=== PATIENT | female | born 1960 | race Caucasian/White ===

== ENCOUNTER → 2018-11-11 12:10 | Outpatient (CLI) | payer SELFPAY ==
[2017-10-04 13:15] VITALS: BMI 32.1
--- NOTE | 2018-11-11 12:13 | BI_ITS ---
MAMMOGRAPHY - UNILATERAL SCREENING: LEFT BREAST REASON FOR EXAM: Female, 58 years old. Routine annual screening examination (unilateral). PERTINENT HISTORY: Personal history of breast cancer. Prior right mastectomy. TECHNIQUE: Digital unilateral breast elsa (3D mammographic acquisition) in the CC and MLO projections. 2-D mediolateral oblique (MLO) and craniocaudad (CC) views of both breasts were obtained. CAD: Full Field Digital Mammography with Computer Added Detection was performed. COMPARISON: Comparison is made with prior outside examination dated August 17, 2016. FINDINGS: Breast Composition: The breasts are heterogeneously dense, which may obscure small masses. There are no dominant masses or suspicious calcifications. Benign-appearing left axillary lymph node. No other significant abnormalities are identified. There has been no significant change since the prior study. BI/SCREEN MAMM (CAD) W/ESLA UNI L IMPRESSION: Stable unilateral screening mammogram. Yearly follow-up mammogram recommended. (A) ASSESSMENT CATEGORY: BIRADS Category 2: Benign. A letter regarding these results will be sent to the patient by the facility within 30 days. Approximately 10% of breast cancers are not detected by mammography. A normal mammogram should not delay biopsy of a clinically suspicious abnormality. [id number] Electronically Signed: Patel Phillips, at 9:07 EDT , Service support ,
== END ==
PROVIDERS: Referring Provider Surgery; Visit Provider Surgery
DX: Z12.31 Encounter for screening mammogram for malignant neoplasm of breast (principal)
CPT/HCPCS: 77061; 77067; G0279

== ENCOUNTER → 2019-11-13 12:48 | Outpatient (CLI) | payer SELFPAY, OTHER ==
[2018-11-22 13:35] VITALS: BMI 32.1
--- NOTE | 2019-11-13 12:50 | BI_ITS ---
MAMMOGRAPHY - UNILATERAL SCREENING: LEFT BREAST REASON FOR EXAM: Female, 59 years old. Routine annual screening examination (unilateral). PERTINENT HISTORY: Personal history of breast cancer. Prior right mastectomy. TECHNIQUE: Digital unilateral breast elsa (3D mammographic acquisition) in the CC and MLO projections. 2-D mediolateral oblique (MLO) and craniocaudad (CC) views of both breasts were obtained. CAD: Full Field Digital Mammography with Computer Added Detection was performed. COMPARISON: Comparison is made with prior study dated 11/11/2018 and 10/03/2010. FINDINGS: Breast Composition: The breasts are heterogeneously dense, which may obscure small masses. There are no dominant masses or suspicious calcifications. No other significant abnormalities are identified. There has been no significant change since the prior study. BI/SCREEN MAMM (CAD) W/ELSA UNI L IMPRESSION: Stable unilateral screening mammogram. Yearly follow-up mammogram recommended. (A) ASSESSMENT CATEGORY: BIRADS Category 1: Negative. A letter regarding these results will be sent to the patient by the facility within 30 days. Approximately 10% of breast cancers are not detected by mammography. A normal mammogram should not delay biopsy of a clinically suspicious abnormality. [id number] Electronically Signed: Patel Phillips, at 14:01 EDT , Service support ,
== END ==
PROVIDERS: Referring Provider Surgery; Visit Provider Surgery
DX: Z12.31 Encounter for screening mammogram for malignant neoplasm of breast (principal)
CPT/HCPCS: 77063; 77067

== ENCOUNTER → 2020-11-08 07:53 | Outpatient (CLI) | payer SELFPAY, OTHER ==
--- NOTE | 2020-11-08 08:10 | BI_ITS ---
MAMMOGRAPHY - UNILATERAL SCREENING: LEFT BREAST REASON FOR EXAM: Female, 60 years old. Routine annual screening examination (unilateral). PERTINENT HISTORY: Personal history of breast cancer. Prior right mastectomy and chemotherapy. TECHNIQUE: Digital unilateral breast elsa (3D mammographic acquisition) in the CC and MLO projections. 2-D mediolateral oblique (MLO) and craniocaudad (CC) views of both breasts were obtained. CAD: Full Field Digital Mammography with Computer Added Detection was performed. COMPARISON: Comparison is made with prior examination is 11/13/2019 and 11/11/2018. FINDINGS: Breast Composition: The breasts are heterogeneously dense, which may obscure small masses. There are no dominant masses or suspicious calcifications. No other significant abnormalities are identified. There has been no significant change since the prior study. BI/SCREEN MAMM (CAD) W/ELSA UNI L IMPRESSION: Stable unilateral screening mammogram. Yearly follow-up mammogram recommended. (A) ASSESSMENT CATEGORY: BIRADS Category 1: Negative. A letter regarding these results will be sent to the patient by the facility within 30 days. Approximately 10% of breast cancers are not detected by mammography. A normal mammogram should not delay biopsy of a clinically suspicious abnormality. [id number] Electronically Signed: Patel Phillips MD at 9:04 EDT , Service support ,
== END ==
PROVIDERS: Referring Provider Surgery; Visit Provider Surgery
DX: Z12.31 Encounter for screening mammogram for malignant neoplasm of breast (principal); Z85.3 Personal history of malignant neoplasm of breast
CPT/HCPCS: 77063; 77067

== ENCOUNTER → 2021-11-10 | Outpatient (CLI) | payer SELFPAY, OTHER ==
--- NOTE | 2021-11-10 09:37 | BI_ITS ---
MAMMOGRAPHY - UNILATERAL SCREENING: LEFT BREAST REASON FOR EXAM: Female, 61 years old. Routine annual screening examination (unilateral). PERTINENT HISTORY: Personal history of breast cancer. Prior right mastectomy and chemotherapy. TECHNIQUE: Digital unilateral breast elsa (3D mammographic acquisition) in the CC and MLO projections. 2-D mediolateral oblique (MLO) and craniocaudad (CC) views of both breasts were obtained. CAD: Full Field Digital Mammography with Computer Added Detection was performed. COMPARISON: Comparison is made with prior study dated 11/08/2020 and 11/13/2019. FINDINGS: Breast Composition: The breasts are heterogeneously dense, which may obscure small masses. There are no dominant masses or suspicious calcifications. No other significant abnormalities are identified. There has been no significant change since the prior study. BI/SCREEN MAMM (CAD) W/ELSA UNI L IMPRESSION: Stable unilateral screening mammogram. Yearly follow-up mammogram recommended. (A) ASSESSMENT CATEGORY: BIRADS Category 1: Negative. A letter regarding these results will be sent to the patient by the facility within 30 days. Approximately 10% of breast cancers are not detected by mammography. A normal mammogram should not delay biopsy of a clinically suspicious abnormality. [id number] Electronically Signed: Patel Phillips MD at 10:16 EDT ,
== END | disposition home or self-care (01) ==
PROVIDERS: PCP Family Medicine; Visit Provider Surgery
DX: Z12.31 Encounter for screening mammogram for malignant neoplasm of breast (principal)
CPT/HCPCS: 77063; 77067

== ENCOUNTER → 2022-07-08 | Outpatient (CLI) | payer SELFPAY, OTHER ==
--- NOTE | 2022-07-08 07:45 | MRI_ITS ---
STUDY: MRI LEFT KNEE REASON FOR EXAM: Female, 62 years old. Injury. Pain. TECHNIQUE: Standardized fat and water weighted pulse sequences were obtained in all 3 orthogonal planes. COMPARISON: Left knee images dated November 28, 2021. FINDINGS: Complex tear of the posterior horn of the medial meniscus with a partial thickness radial tear of the posterior horn near the meniscal root (sagittal series 7 images 15-19). Extrusion of the body and anterior horn of the medial meniscus (coronal series 9 images 13-19). Marked thinning/loss of substance of the articular cartilage of the medial femorotibial compartment with reactive subchondral bone marrow edema and osteophyte formation (coronal series 9 images 11-21). Mild MCL sprain (coronal series 9 images 14-16). Normal distal semimembranosus, gracilis and semitendinosus tendons. Normal lateral meniscus. Moderate thinning of the articular cartilage of the lateral femorotibial compartment (coronal series 9 images 14-19). Normal lateral femoral condyle and tibial plateau. Normal proximal tibiofibular articulation. Normal lateral collateral (fibular) ligament. Normal popliteus tendon. Normal biceps femoris tendon. Normal anterior cruciate ligament (ACL). Normal posterior cruciate ligament (PCL). Lateral tilt and subluxation of the patella with moderate to marked thinning of the articular cartilage of the patellofemoral compartment (axial series 10 images 15-26). Normal medial and lateral patellar retinaculum. Normal quadriceps tendon. Normal patellar tendon. Normal Hoffa''s fat pad. Deep infrapatellar bursitis (sagittal series 7 image 11). Large joint effusion with medial and lateral plicae (axial series 10 images 13-27). Small dissecting popliteal cyst (axial series 10 images 7-19). Marked prepatellar subcutaneous soft tissue edema (sagittal series 7 images 4-16). The otherwise visualized osseous structures are unremarkable. MRI/Lower Ext Joint Only (Routine) IMPRESSION: Complex tear of the posterior horn of the medial meniscus with a partial thickness radial tear of the posterior horn near the meniscal root. Extrusion of the body and anterior horn of the medial meniscus. Marked thinning of the articular cartilage of the medial femorotibial compartment as described. Mild MCL sprain. Moderate thinning of the articular cartilage of the lateral femorotibial compartment. Lateral tilt and subluxation of the patella with moderate to marked thinning of the articular cartilage of the patellofemoral compartment. Large joint effusion with medial and lateral plicae. Deep infrapatellar bursitis. Small dissecting popliteal cyst. Marked prepatellar subcutaneous soft tissue edema. Electronically Signed: Lobo Neal, at 15:05 EDT ,
== END | disposition home or self-care (01) ==
PROVIDERS: PCP Family Medicine; Referring Provider Physician Assistant; Visit Provider Physician Assistant
DX: M23.92 Unspecified internal derangement of left knee (principal)
CPT/HCPCS: 73721

== ENCOUNTER 2022-07-28 08:19 | Day surgery (SDC) | payer SELFPAY, OTHER ==
[2022-07-28] VITALS (7 sets, daily range): BP systolic 109–147; BP diastolic 53–87; PULSE 75–81; RESP 16; TEMP 36.1–36.9; O2SAT 73–98; BMI 38.0
[2022-07-28] MEDS: Lactated Ringers 1,000 ML 15 ML IV (09:02)
--- NOTE | 2022-07-28 10:21 | HP.PCM_ITS ---
History and Physical Date of Admission: 07/28/22 [facility] [id number] [place] [address] OFFICE VISIT Date of Service:? 07/13/22 MR#: [id number] Acct: [id number] Name:NATHANAEL HERNANDEZ Rep #: [id number] : 1960 ? ? Provider: ?MARILYNN Coyne Age/Sex:? 62/F ? ? Location: [facility] Status: Signed Intake Intake Visit Reasons:?LEFT KNEE Chief Complaint: left knee pain Is patient in pain?: Yes Pain scale (1-10): 3 Allergies acetaminophen Allergy (Mild, Verified 07/13/22 10:10) itching Medications ascorbic acid (vitamin C) 500 mg tablet 500 mg PO QDAY 10/04/17 [History Confirmed 07/13/22] multivitamin,et-cyiv-sobaoqvj (Complete Multivitamin tablet) 1 tab PO QDAY 10/04/17 [History Confirmed 07/13/22] omega-3 fatty acids 1,000 mg capsule (Fish Oil Concentrate) 1,000 mg PO QDAY 10/04/17 [History Confirmed 07/13/22] PFSH Medical History?(Updated 07/13/22 @ 14:59 by MARILYNN Lara) Breast cancer in female History of right breast cancer Personal history of breast cancer Surgical History? History of hysterectomy History of right mastectomy (~2010) Family History? Mother Heart disease Hypertension CHF (congestive heart failure) Social History? Smoking Status:? Never smoker HPI LEFT KNEE Details: Parts of this documentation were recorded by a scribe, this documentation accurately reflects the service provided and the decisions made by , MARILYNN Mcclendon 07/13/22 1008. NATHANAEL OSORIO is a 62 year old F here today for MRI review of the left knee. Denies any changes.? Ortho Exam General General: Yes no acute distress Neurologic: Yes alert and Yes oriented x3 Psychologic: Yes reasonable and appropriate Left Knee Skin/Wound: No ecchymosis, No erythema and Yes swelling Contralateral Normal: Yes Homans Sign: No 2+: Effusion Knee ROM: Yes ROM-Extension -20 to 0 and No ROM-Flexion 0-140 Examination: Yes med jt line tenderness, No Lat jt line tenderness, No TTP inf pole patella, No Crepitus, Yes Pain with flexion, No TTP Patellar tendon, Yes TTP Pes Anserine and No Illiotibial band tenderness Quad Atrophy: No KNEE: Inspection of the left knee continues to show pretty significant effusion of the left knee.? No erythema, ecchymosis bruising, or other skin changes.? At this time patient does appear to have a little more swelling than her previous exam and as result does have a little more limitation in her flexion compared to previous.? She does have some medial joint line tenderness still as well as evident pes anserine bursa tenderness.? She does have soft compartments of the lower extremity.? Normal sensation to light touch. Head: Normocephalic Atraumatic Chest: symmetrical rise, non-labored breathing, no audible wheeze Abdomen: no guarding, non-rigid Coding Level of Care Code Off vis,est,level 3 Diagnoses Internal derangement of left knee? M23.92 Osteoarthritis of left knee? M17.12 Tear of medial meniscus of left knee? S83.242A Pes anserinus bursitis of left knee? M70.52 Assessment and Plan Assessment and Plan (1) Internal derangement of left knee: ?Status:?Acute (2) Osteoarthritis of left knee: ?Status:?Acute (3) Tear of medial meniscus of left knee: ?Status:?Acute (4) Pes anserinus bursitis of left knee: ?Status:?Acute Plan Patient presents the office today to review the MRI of the left knee.? Patient states she has not had any changes in her left knee symptoms since her last visit.? She states that she still has some feelings of tightness and swelling that will come and go.? She also states that stairs really are a problem for her and she has felt sometimes that she will be unable to support herself during the movement.? She denies any locking of the knee.? She continues to complain of left knee medial sided pain as well as in the medial posterior aspect as well as tightness/fullness during flexion.? At this time patient's MRI images and impression were discussed with patient and her in the office.? We did discuss evidence of pretty significant medial meniscus tear.? We did discuss edema both the medial femoral condyle and the medial tibial plateau.? It does show some signs of evident bursitis of the knee.? We also discussed evidence of a large effusion.? Really there appears to be minor changes associate with osteoarthritis.? At this time we did discuss treatment options with patient which include continue with oral anti-inflammatories, physical therapy, injection of the knee, and arthroscopy.? At this time patient states she really would like to have something that would be more permanent instead of an injec tion.? Again I do think that having mechanical symptoms as well as some instability and with a lot of her symptoms being since last May that an arthroscopy definitely is warranted.? At this point we did have our surgeon come in to discuss anatomy physiology as well as the MRI images and impression.? Again patient related to surgeon that she would like to proceed with arthroscopy for probable medial meniscectomy as well as synovectomy/debridement.? We did discuss risks and the benefits which include but not limited to blood loss, blood clot, infection, neurovascular injury, failure of procedure, loss of limb/loss of life from anesthesia.? We did discuss that healing can vary depending on how big of a meniscectomy or other tissue was removed.? She is not likely going to have a repair although we did discuss the possibility.? If patient has any other questions or concerns prior to her procedure she can always notify our office. ? This note was generated with [employer] software. It may contain incorrect words, spelling, and punctuation that were not noted in checking the note before signing. 07/13/22 1502 <Electronically signed by Huy SUBRAMANIAN> Date Huy SUBRAMANIAN I have examined the patient and the H&P has been reviewed. There are no clinical changes since date of exam.
[2022-07-28] MEDS: Cefazolin 2 GM in 0.9% Normal Saline 100 ML IV (10:55)
[2022-07-28] MEDS: Epinephrine (1 mg/ml) 1 MG/ML VIAL (11:20)
[2022-07-28] MEDS: Lidocaine 1%/Epi 1:200 (30ml) 30 ML AMPUL (11:20)
[2022-07-28] MEDS: MethylPREDNISolone Acetate 40 MG/ML Vial IM (11:37)
[2022-07-28] MEDS: Bupivacaine 0.5% PF 10 ML VIAL (11:37)
--- NOTE | 2022-07-28 11:42 | OP.PCM_ITS ---
Operative Report Date of Procedure: 07/28/22 Preop diagnosis: Left knee complex tear medial meniscus DJD Postoperative diagnosis: Left knee complex tear medial meniscus grade 4 trochlea grade 3 medial femoral condyle chondromalacia Procedure: Left knee arthroscopic partial medial meniscectomy Anesthesia: General Estimated blood loss: 5 mL Tourniquet time: 22 minutes 300 mmHg Complications: none Indication for procedure: 62-year-old female who has had ongoing mechanical knee pain mostly on the medial side of her knee did have MRI evidence of DJD as well as a complex tear of the medial meniscus the patient did wish to proceed with an elective arthroscopic surgery to attempt to alleviate the symptoms. Risk benefits and alternatives of the procedure were reviewed including risk of bleeding infection nerve artery tissue damage need for further surgery continued pain and expected postoperative course. Procedure: The patient was met in the preoperative holding area. The operative extremity was identified by both patient and physician and family and marked. Patient was brought back to the operating room on a wheeled cart and transferred to the operating table in the supine position. Anesthesia was started. A well- padded tourniquet was placed on the operative extremity. A lower extremity leg fan was secured to the operative extremity. The contralateral extremity was well-padded and the end of the bed was flexed to 90 degrees. The patient was prepped and draped in the usual sterile fashion. A timeout was called to ensure the proper patient, procedure, and extremity were being contemplated. 0.5% Marcaine with epinephrine was injected into the planned incisional areas under the skin only. An Esmarch was used to exsanguinate the extremity and the tourniquet was inflated. An 11 blade scalpel was used to make a stab incision in the anterior lateral portal. The arthroscope was inserted into the int ercondylar notch and inflow and outflow tubes were attached. Arthroscopic visualization began. The medial compartment was entered. An 18-gauge spinal needle was used to establish the placement for anterior medial portal. An 11 blade scalpel was used to make a stab incision. Blunt probe was inserted followed by a meniscal probe. Immediately there was noted be high-grade cartilage wear throughout the medial compartment of the knee particularly the medial femoral condyle but also the medial tibial plateau there was a complex tear of the posterior horn and body of the medial meniscus with use of arthroscopic biting instruments shaver and ArthroCare wand partial medial meniscectomy was performed the ACL was found to be intact however there was osteophytes noted in the intercondylar notch. The lateral compartment was entered and was free of meniscal or cartilage pathology The arthroscope was switched to the medial portal to complete the procedure. The medial and lateral gutters were inspected and were free of loose bodies. The patellofemoral joint was inspected and grade 4 cartilage wear throughout the trochlea. There was good patellar tracking. The knee was thoroughly irrigated and drained. An intra-articular injection with 5 cc 0.5% Marcaine plain and 40 mg of Depo-Medrol was injected intra-articularly. The arthroscope was removed the portals were closed with 3-0 nylon arthroscopic stitches. Followed by Xeroform 4 x 4's ABDs web roll and an Edilberto wrap. The tourniquet was let down and the drapes were removed. All counts were correct. The patient was brought back to the PACU in stable condition.
--- NOTE | 2022-07-28 11:46 | DCINST_ITS ---
Discharge Instructions Diet Discharge Diet: No restrictions Dressing / Incision Call your doctor if you observe: Shortness of breath and Chest pain Additional Dressing/Incision Instructions:: Ice and elevate next 72 hours .keep dressing on clean and dry for 48 hours then may remove begin showering daily but do not submerge in tub or pool. After shower may apply Band-Aids . Encourage knee range of motion weightbearing as tolerated, use crutches until confident in knee then may discontinue. No strenuous activity. When not ambulating keep iced and elevated next 72 hours. Do not mix pain medication with recreational drugs or alcohol only take as prescribed can be addictive and abusive, call with any questions or concerns. Follow Up Care Please Follow Up With: Levi Robins DO When: 2 weeks Test Results: Test results from this visit will be discussed in further detail at your follow- up appointment, if applicable. Discharge Plan Admission Primary Reason for Your Visit: Left knee arthroscopy Attending Provider: Levi Robins Primary Care Provider: Nino Gonzalez Discharge Orders/Prescriptions Prescriptions: New oxycodone-acetaminophen [Percocet] 5-325 mg tablet 1 - 2 tab PO Q8H PRN (Reason: pain) 5 Days Qty: 25 0RF No Action multivitamin,uh-gwvn-vgahsuqg tablet tablet 1 tab PO QDAY omega-3 fatty acids [Fish Oil Concentrate] 1,000 mg capsule 1,000 mg PO QDAY ascorbic acid (vitamin C) 500 mg tablet 500 mg PO QDAY cranberry 400 mg Capsule 400 mg PO DAILY Rx Instructions: administer with a meal cholecalciferol (vitamin D3) [Vitamin D3] 50 mcg (2,000 unit) Tablet 50 mcg PO DAILY Estradil 1 tab PO/SL BID Referrals / Follow Up: Nino Gonzalez MD [Primary Care Provider] - Disposition Disposition (needs filled in before D/C Order can be placed): Home, Self Care
== END 2022-07-28 14:07 | disposition home or self-care (01) ==
LOC: SDC 08:20 → AC 08:21
PROVIDERS: PCP Family Medicine; Referring Provider Orthopaedic Surgery; Visit Provider Orthopaedic Surgery
PROC: (CPT 29870; principal; 2022-07-28 10:10)
DX: M17.12 Unilateral primary osteoarthritis, left knee (principal); M23.92 Unspecified internal derangement of left knee; M70.52 Other bursitis of knee, left knee; S83.242A Other tear of medial meniscus, current injury, left knee, initial encounter; Z85.3 Personal history of malignant neoplasm of breast
CPT/HCPCS: 29881; 01400; J7120; J2405

== ENCOUNTER → 2022-11-17 | Outpatient (CLI) | payer SELFPAY, OTHER ==
--- NOTE | 2022-11-17 09:00 | BI_ITS ---
MAMMOGRAPHY - UNILATERAL SCREENING: LEFT BREAST REASON FOR EXAM: Female, 62 years old. Routine annual screening examination (unilateral). PERTINENT HISTORY: Personal history of breast cancer. Prior right mastectomy. TECHNIQUE: Digital unilateral breast elsa (3D mammographic acquisition) in the CC and MLO projections. 2-D mediolateral oblique (MLO) and craniocaudad (CC) views of both breasts were obtained. CAD: Full Field Digital Mammography with Computer Added Detection was performed. COMPARISON: Comparison is made with prior study February 09, 2022 and November 08, 2020. FINDINGS: Breast Composition: The breasts are heterogeneously dense, which may obscure small masses. There are no dominant masses or suspicious calcifications. Stable small benign-appearing bilateral axillary lymph nodes. No other significant abnormalities are identified. There has been no significant change since the prior study. BI/SCREEN MAMM (CAD) W/ELSA UNI L IMPRESSION: Stable unilateral screening mammogram. Yearly follow-up mammogram recommended. (A) ASSESSMENT CATEGORY: BIRADS Category 2: Benign. A letter regarding these results will be sent to the patient by the facility within 30 days. Approximately 10% of breast cancers are not detected by mammography. A normal mammogram should not delay biopsy of a clinically suspicious abnormality. [id number] Electronically Signed: Patel Phillips MD at 10:11 EDT ,
== END | disposition home or self-care (01) ==
LOC: OPBI 08:59
PROVIDERS: PCP Family Medicine; Referring Provider Surgery; Visit Provider Surgery
DX: Z12.31 Encounter for screening mammogram for malignant neoplasm of breast (principal); Z85.3 Personal history of malignant neoplasm of breast
CPT/HCPCS: 77063; 77067

== ENCOUNTER → 2023-11-22 | Outpatient (CLI) | payer SELFPAY, OTHER ==
--- NOTE | 2023-11-22 08:35 | BI_ITS ---
MAMMOGRAPHY - UNILATERAL SCREENING: LEFT BREAST REASON FOR EXAM: Female, 63 years old. Routine annual screening examination (unilateral). PERTINENT HISTORY: Personal history of breast cancer. Prior right mastectomy. TECHNIQUE: Digital unilateral breast elsa (3D mammographic acquisition) in the CC and MLO projections. 2-D mediolateral oblique (MLO) and craniocaudad (CC) views of both breasts were obtained. CAD: Full Field Digital Mammography with Computer Added Detection was performed. COMPARISON: Comparison is made with prior study dated November 17, 2022. FINDINGS: Breast Composition: The breasts are heterogeneously dense, which may obscure small masses. There are no dominant masses or suspicious calcifications. No other significant abnormalities are identified. There has been no significant change since the prior study. BI/SCREEN MAMM (CAD) W/ELSA UNI L IMPRESSION: Stable unilateral screening mammogram. Yearly follow-up mammogram recommended. (A) ASSESSMENT CATEGORY: BIRADS Category 1: Negative. A letter regarding these results will be sent to the patient by the facility within 30 days. Approximately 10% of breast cancers are not detected by mammography. A normal mammogram should not delay biopsy of a clinically suspicious abnormality. [id number] Electronically Signed: Patel Phillips MD at 11:26 EDT ,
== END | disposition home or self-care (01) ==
LOC: OPBI 08:35
PROVIDERS: PCP Family Medicine; Referring Provider Student in an Organized Health Care Education/Training Program; Visit Provider Student in an Organized Health Care Education/Training Program
DX: Z12.31 Encounter for screening mammogram for malignant neoplasm of breast (principal); Z85.3 Personal history of malignant neoplasm of breast
CPT/HCPCS: 77063; 77067

== ENCOUNTER → 2024-11-22 | Outpatient (CLI) | payer MEDICARE, OTHER, SELFPAY ==
--- NOTE | 2024-11-22 08:27 | BI_ITS ---
EXAM: SCREEN MAMM (CAD) W/ELSA UNI L DATE: 11/22/2024 CLINICAL HISTORY: F, Age 64 y/o , SCREEN Personal history of breast cancer. Prior right mastectomy. TECHNIQUE: Procedure Code: [id number] Modality: MG Procedure: SCREEN MAMM (CAD) W/ELSA UNI L COMPARISON: Prior exam(s) dated November 22, 2023.. FINDINGS: TISSUE DENSITY: The breasts are heterogeneously dense, which may obscure small masses. Bilateral Breast Mammographic Findings: No significant masses, calcifications or other abnormalities are identified. No suspicious masses, areas of developing architectural distortion, or suspicious calcifications. There has been no significant interval change. BI/SCREEN MAMM (CAD) W/ELSA UNI L IMPRESSION: Stable bilateral screening mammogram. OVERALL FINAL ASSESSMENT BI-RADS 1: NEGATIVE. RECOMMENDATION: Routine annual follow-up in 1 Year Additional Recommendation none A letter with findings and recommendations will be mailed to the patient. Reading Location: [place] [address]
--- NOTE | 2024-11-22 08:27 | BI_ITS ---
EXAM: SCREEN MAMM (CAD) W/ELSA UNI L DATE: 11/22/2024 CLINICAL HISTORY: F, Age 64 y/o , SCREEN Personal history of breast cancer. Prior right mastectomy. TECHNIQUE: Procedure Code: [id number] Modality: MG Procedure: SCREEN MAMM (CAD) W/ELSA UNI L COMPARISON: Prior exam(s) dated November 22, 2023.. FINDINGS: TISSUE DENSITY: The breasts are heterogeneously dense, which may obscure small masses. Bilateral Breast Mammographic Findings: No significant masses, calcifications or other abnormalities are identified. No suspicious masses, areas of developing architectural distortion, or suspicious calcifications. There has been no significant interval change. BI/SCREEN MAMM (CAD) W/ELSA UNI L IMPRESSION: Stable bilateral screening mammogram. OVERALL FINAL ASSESSMENT BI-RADS 1: NEGATIVE. RECOMMENDATION: Routine annual follow-up in 1 Year Additional Recommendation none A letter with findings and recommendations will be mailed to the patient. Reading Location: [place] [id number]
== END | disposition home or self-care (01) ==
PROVIDERS: PCP Student in an Organized Health Care Education/Training Program; Referring Provider Student in an Organized Health Care Education/Training Program; Visit Provider Student in an Organized Health Care Education/Training Program
DX: Z12.31 Encounter for screening mammogram for malignant neoplasm of breast (principal)
CPT/HCPCS: 77063; 77067